=== PATIENT | male | born 1965 | race Caucasian/White ===

== ENCOUNTER → 2024-08-11 13:18 | Outpatient (REF) | payer BC, SELFPAY | LOC: HWRAD 13:18 | PROVIDERS: ATTENDING PHYSICIAN Family Medicine; REFERRING PHYSICIAN Podiatrist Foot Surgery | DX: M77.31 Calcaneal spur, right foot (principal) | CPT/HCPCS: 73630 ==

== ENCOUNTER 2025-05-30 14:13 | Emergency (ER) | payer BC, SELFPAY ==
[2025-05-30 14:16] VITALS: BP 143/99
[2025-05-30 14:40] LABS: Hematocrit 39.3 % (39.0-52.0); Hemoglobin 13.3 g/dL (13.0-18.0); Mean Corp Hgb Conc. 33.8 g/dL (33.0-37.0); Mean Corpuscular Volume 89.7 fL (80.0-94.0); Nucleated Red Blood Cells % 0 % (-); Platelet Count 233 10^3/uL (130-400); Red Cell Dist. Width 13.0 % (11.5-14.5)
[2025-05-30 15:40] LABS: ALT (SGPT) 17 U/L (0-50); AST (SGOT) 21 U/L (17-59); Albumin 4.6 g/dl (3.5-5.0); Alkaline Phosphatase 78 U/L (38-126); Blood Urea Nitrogen 27 mg/dl (9-20); Calcium 9.3 mg/dl (8.4-10.2); Carbon Dioxide 23 mmol/L (22-30); Chloride 107 mmol/L (98-107); Glucose 115 mg/dl (70-99); Lipase 95 U/L (23-300); Potassium 4.2 mmol/L (3.5-5.1); Sodium 139 mmol/L (135-145); Total Protein 7.2 g/dl (6.3-8.2); eGFR > 60.00
--- NOTE | 2025-05-30 17:34 | ED.GENMED ---
History of Present Illness
General
Chief Complaint: Abdominal Pain
Source: patient
Exam Limitations: none
Time Seen by Provider: 05/30/25 17:21
Nursing documentation reviewed up to this point in time: agreed with
History of Present Illness
History of Present Illness:
Patient to ED with complaint of right sided abd. pain. States pain started in his back approx 2-3 weeks ago but now is on right side of abd. Denies fever/chills, n/v/d.Advised by PCP to come to ED if his symptoms worsened. States today pain is
worse.
Past History
Past History
ED Past Medical History: HTN and Hypercholesterolemia
ED Past Surgical History: Orthopedic
Patient has exhibited threatening behavior?: No
Social History
Tobacco: Non-smoker
Alcohol: Occasional
Drug: None
Personal:
Living: with family
Review of Systems
Review of Systems
Allergies reviewed?: Yes
All Other Systems: ROS reviewed and negative except as documented in HPI and ROS
Constitutional: Reports no symptoms
EENT: Reports no symptoms
Respiratory: Reports no symptoms
Cardiac: Reports no symptoms
ABD/GI: Reports abdominal pain (right sided abd. pain)
: Reports no symptoms
Musculoskeletal: Reports no symptoms
Skin: Reports no symptoms
Neurological: Reports no symptoms
Psychiatric: Reports no symptoms
Phy Exam
General Physical Exam
General Presentation: well appearing and mild distress
General age: appears stated age
General Skin: warm and dry
General Habitus: normal
General Mental: alert
Cardiovascular Exam
Cardiovascular Exam: regular rate/rhythm and no edema
Gastrointestinal Exam
Gastrointestinal Exam: normal bowel sounds, soft, no organomegaly, no pulsatile mass and non distended
Palpation: left upper quadrant: No tenderness, left lower quadrant: No tenderness, right upper quadrant: Mild tenderness and right lower quadrant: Mild tenderness
Musculoskeletal Exam
Musculoskeletal Exam: full ROM and neuro vasc intact
Skin Exam
Skin Exam: normal color, warm/dry and no rash
Psychiatric Exam
Psychiatric Exam: normal mood/affect
Course
Orders/Labs/Results
Orders:
Orders
05/30/25 14:20
Complete Blood Count/With Diff Urgent
Comprehensive Metabolic Panel Urgent
Lipase Urgent
05/30/25 17:35
CT Abd/pelvis W Iv Cont Urgent
Comment:
Reason For Exam: right sided abd. pain
0.9% Sodium Chloride 1000 ml [Nss] 1,000 ml IV BOLUS
05/30/25 18:50
Ketorolac [Toradol] 15 mg IV NOW STA
05/30/25 19:52
Urinalysis Reflex To Culture Urgent
Date Specimen was Collected: 05/30/25
Time Specimen was Collected: 18:27
Urine Microscopic Reflex Cult Urgent
Abnormal Lab Results
05/30/25 05/30/25
14:20 19:52
RBC 4.38 L 10^6/uL
(4.70-6.10)
Absolute Monos (auto) 0.7 H 10^3/uL
(0.1-0.6)
BUN 27 H mg/dl
(9-20)
Glucose 115 H mg/dl
(70-99)
Urine Albumin (Reflex) 1+ A
(Neg - Trace)
05/30/25 14:20
05/30/25 14:20
Vital Signs
Initial and Last Documented VS:
Initial Vital Signs
Temp Pulse Resp BP Pulse Ox
98.2 F 70 20 143/99 99
05/30/25 14:16 05/30/25 14:16 05/30/25 14:16 05/30/25 14:16 05/30/25 14:16
Last Documented Vital Signs
Temp Pulse Resp BP Pulse Ox
98.6 F 82 20 149/76 98
05/30/25 18:23 05/30/25 18:23 05/30/25 18:23 05/30/25 19:00 05/30/25 19:00
*Radiology
Radiology exam reviewed: radiology read reviewed
*Pulse Oximetry
SaO2: 99
Oxygen Mode of Delivery: Room air
Patient hypoxic: no
*Critical Care Note
Total Time (30-74mins, 75-104mins- exclusive of procedures): Not Applicable
Update Note
Update Note:
Patient to ED with report of right sided abdominal pain. No associated n/v/d, fever/chills. Labs reviewed, no concerning findings. CT abd: No findings to explain his pain. Discussed results with him. Will discharge home, close followu pw ith
PCP. Given instructions on s/s to return to ED and he is agreeable to plan
ED Attending Note
-
Portions of this chart may have been created with voice recognition software.� Occasional wrong word or��sound alike� substitutions may have occurred due to the inherent limitations of voice recognition software.
Discharge Plan
Departure
Patient Disposition: Home (Routine Discharge)
Date of Disposition: 05/30/25
Time of Disposition: 20:04
Patient with high blood pressure during this ER visit?: No
Condition: Good
Covid-19: Not Applicable
Discharge Problem:
Abdominal pain
Instructions: Abdominal Pain
Prescriptions:
No Action
lisinopril 10 MG tablet
10 mg PO DAILY
atorvastatin 10 mg Tablet
10 mg PO DAILY
Referrals:
Romie Schuster DO [Family Provider, Family Practice]
Activity Restrictions/Additional Instructions:
Follow up with your family doctor in the AM. Return to the emergency department immediately for any changes in/worsening of your symptoms.
Interventions
Interventions:
*Risk Screen - Suicide Last Done: 05/30/25 18:23
*General Assessment Last Done: 05/30/25 14:16
*Neglect/Abuse Screening Last Done: 05/30/25 18:23
*ED- Fall Risk Assessment Last Done: 05/30/25 18:23
*ED COVID-19 Vaccine History Last Done: 05/30/25 18:23
*ED Influenza Vaccine History Last Done: 05/30/25 18:23
MC-Ktrxcd-Mzdiuwomgx Assessment Last Done: 05/30/25 19:02
Discharge Date and Time
Print Language: ARMENIAN
[2025-05-30 18:15] VITALS: BMI 27.5
[2025-05-30] MEDS: NSS 1000 IV (18:22)
[2025-05-30 18:23] VITALS: BP 133/76
[2025-05-30] MEDS: TORADOL 15 MG IV (18:59)
[2025-05-30 19:00] VITALS: BP 149/76
[2025-05-30 20:02] LABS: Urine Character Clear (Clear)
[2025-05-30 20:10] VITALS: BP 140/67
[2025-05-30 20:26] LABS: Urine Red Blood Cell 0-2 /HPF (0-2); Urine Squamous Cell 0-2 /LPF (Few); Urine White Cell 0-2 /HPF (0-5)
== END 2025-05-30 20:16 | disposition home or self-care (01) ==
LOC: EMR 14:13
PROVIDERS: Emergency Medicine; Nurse Practitioner; EMERGENCY PHYSICIAN Student in an Organized Health Care Education/Training Program; FAMILY PHYSICIAN Family Medicine
DX: R10.9 Unspecified abdominal pain (principal); I10 Essential (primary) hypertension; E78.00 Pure hypercholesterolemia, unspecified
CPT/HCPCS: 99284; 96374; 96361; 74177; 80053; 81003; 81015; 83690; 85025; Q9967